=== PATIENT | female | born 1945 | race Caucasian/White ===

== ENCOUNTER 2018-09-09 10:03 | Inpatient (IN) | payer MEDICARE, OTHER ==
[~2018-09-09] VITALS: Ht 165.1 cm; Wt 63.8 kg
[~2018-09-09 10:03] MED LIST: ACTONEL; CYAN500L3 OR; PYRI50TA71 OR
[2018-09-09 10:55] LABS: Basophils # (auto) 0.1 uL; Basophils % (auto) 1.1 % (0.0-2.0); Eosinophils # (auto) 0.2 uL; Eosinophils % (auto) 2.8 % (0.0-7.0); Hematocrit 43.5 % (36.0-46.0); Hemoglobin 14.6 g/dL (12.2-16.2); Lymphocytes # (auto) 2.2 uL; Lymphocytes % (auto) 38.7 % (10.0-50.0); Mean Corpuscular Hemoglobin 29.8 pg (28.0-32.0); Mean Corpuscular Hgb Conc. 33.5 g/dL (32.0-36.0); Monocytes # (auto) 0.5 uL; Monocytes % (auto) 9.4 % (0.0-12.0); Neutrophils # (auto) 2.7 uL; Platelet Count (auto) 327 10^3/uL (140-450); Red Blood Cells 4.89 10^6/uL (4.0-5.20); Red Cell Distribution Width 13.6 % (11.8-14.3); White Blood Cell 5.7 10^3/uL (4.4-10.8)
[2018-09-09 11:08] LABS: INR 0.92 (0.9-1.15); Partial Thromboplastin Time 27.3 sec (23.78-33.04); Prothrombin Time 9.9 sec (9.27-12.13)
[2018-09-09 11:17] LABS: Chloride 110 mmol/L (98-107); Potassium 4.3 mmol/L (3.5-5.1); Sodium 140 mmol/L (136-145)
[2018-09-09 11:27] LABS: Alanine Aminotransferase 47 U/L (13-56); Albumin 3.6 g/dL (3.4-5.0); Alkaline Phosphatase 78 U/L (45-117); Anion Gap 3 (5-15); Aspartate Aminotransferase 21 U/L (15-37); BUN/Creatinine Ratio 18.5; Bilirubin, Total 0.6 mg/dL (0.2-1.0); Blood Urea Nitrogen 12 mg/dL (7-18); Calcium 8.5 mg/dL (8.5-10.1); Carbon Dioxide 27 mmol/L (21-32); GFR African American 116 mL/min; GFR Non-African American 96 mL/min; Glucose 86 mg/dL (74-106); Magnesium 2.6 mg/dL (1.6-2.6); Total Protein 7.7 g/dL (6.4-8.2)
[2018-09-09] MEDS ORDERED: SODIUM CHLORIDE 0.9% 1,000 ML IV ONE (14:49)
[2018-09-09] MEDS ORDERED: ONDANSETRON HCL 4 MG/2 ML VIAL IV ONE (15:00)
[2018-09-09] MEDS ORDERED: KETOROLAC TROMETH 30 MG/ML 1ML VIAL IV ONE (15:00)
[2018-09-09] MEDS ORDERED: ASPirin 81 mg TAB PO ONE (15:00)
[2018-09-09 17:06] LABS: Urine Bacteria FEW /hpf (None Seen); Urine Blood Negative /uL (Negative); Urine Specific Gravity 1.004 (1.001-1.035); Urine WBC 1 /hpf (0 - 5)
[2018-09-09] MEDS ORDERED: NITROGLYCERIN 0.4MG/HR TOPICAL PATCH TD ONE (17:30)
[2018-09-09] MEDS ORDERED: hydrALAZINE HCL 20 MG/ML VL IV PRN (17:30)
[2018-09-09] MEDS ORDERED: NITROGLYCERIN 0.4 MG SL TAB SL PRN (17:30)
[2018-09-09] MEDS ORDERED: MORPHINE SULF INJ 2 MG/ML SYRINGE 1ML IV PRN ×2 (17:30)
[2018-09-09] MEDS ORDERED: ALPRAZolam 0.25 MG TAB PO PRN (17:30)
[2018-09-09] MEDS ORDERED: HYDROcodone-ACET 5/325MG TAB PO PRN (17:30)
[2018-09-09] MEDS ORDERED: ONDANSETRON HCL 4 MG/2 ML VIAL IV PRN (17:30)
[2018-09-09 20:40] VITALS: BP 107/66
--- NOTE | 2018-09-09 20:40 | NUR ---
Telemetry admit from SY WILLRAMSES Parekh admitted to Telemetry unit. Patient oriented to Vernell Chu, primary RN, unit, room, bed, and unit policies regarding patient care and visiting hours. Patient now on continuous telemetry monitoring, tele box # [id number] and telemetry reading on arrival to unit is SR. Patient placed on bedside oxygen, weighed by bedscale and encouraged to call if they need something. All questions and concerns addressed, patient verbalized understanding. Note: patient alert and oriented x 4. On room air with even and unlabored respirations. patient denies CP at this time. no s/s of distress. patient ambulates with steady gait. instructed on POC and to call for assistance PRN. will continue to monitor.
[2018-09-09] MEDS: ACETAMINOPHEN 500 MG TAB PO PRN (21:29)
[2018-09-09] MEDS: ATORVASTATIN 20 MG TAB PO SCH (21:29)
[2018-09-09] MEDS: METOPROLOL TARTRATE 25 MG TAB PO SCH (21:30)
[2018-09-09 22:00] VITALS: BP 107/66
[2018-09-10] MEDS ORDERED: HYDR25TA4 PO (02:23)
[2018-09-10] MEDS ORDERED: CHOL20007 PO (02:23)
[2018-09-10] MEDS ORDERED: INFLUENZA QUAD 2018-2019 0.5 ML SYRG IM ONE (03:00)
[2018-09-10 05:01] VITALS: BP 104/62
--- NOTE | 2018-09-10 07:00 | NUR ---
Closing Note patient resting in bed with even and unlabored respirations. no s/s of distress. IV intact and patent. Endorsed care to day shift HOMA Rapp.
--- NOTE | 2018-09-10 07:30 | NUR ---
OPENING SHIFT NOTE ASSUMED CARE OF PATIENT FROM PLAN COORDINATOR RN KAMERON. PATIENT IS AWAKE AND ALERT X4. PATIENT HAS NO S/S OF DISTRESS/SOB OR PAIN. INSTRUCTED PATIENT ON POC, PATIENT VERBALIZED UNDERSTANDING. BED IS IN LOWEST POSITION WITH SIDE RAILS RAISED X2, BED WHEELS LOCKED, AND CALL LIGHT WITHIN REACH. WILL CONTINUE TO MONITOR.
[2018-09-10 07:39] VITALS: BP 132/64
[2018-09-10 07:42] LABS: Basophils # (auto) 0.1 uL; Basophils % (auto) 1.4 % (0.0-2.0); Eosinophils # (auto) 0.3 uL; Eosinophils % (auto) 4.6 % (0.0-7.0); Hematocrit 41.2 % (36.0-46.0); Hemoglobin 13.9 g/dL (12.2-16.2); Lymphocytes # (auto) 2.9 uL; Lymphocytes % (auto) 47.5 % (10.0-50.0); Mean Corpuscular Hemoglobin 30.1 pg (28.0-32.0); Mean Corpuscular Hgb Conc. 33.7 g/dL (32.0-36.0); Mean Corpuscular Volume 89.3 fL (80.0-100.0); Monocytes # (auto) 0.7 uL; Monocytes % (auto) 10.8 % (0.0-12.0); Neutrophils # (auto) 2.2 uL; Neutrophils % (auto) 35.7 % (37.0-80.0); Platelet Count (auto) 315 10^3/uL (140-450); Red Blood Cells 4.61 10^6/uL (4.0-5.20); Red Cell Distribution Width 13.5 % (11.8-14.3); White Blood Cell 6.1 10^3/uL (4.4-10.8)
[2018-09-10 07:55] LABS: Cholesterol 170 mg/dL (< 200); HDL Cholesterol 56 mg/dL (40-59); LDL Cholesterol 98 mg/dL (< 100); Triglycerides 100 mg/dL (< 150)
[2018-09-10 07:58] LABS: Potassium 4.4 mmol/L (3.5-5.1)
[2018-09-10 08:00] VITALS: BP 132/64
[2018-09-10 08:07] LABS: BUN/Creatinine Ratio 19.7; Calcium 8.4 mg/dL (8.5-10.1)
[2018-09-10] MEDS: cefTRIAXone 1GM/50ML D5W 50 ML IV SCH (09:33)
[2018-09-10] MEDS: PANTOPRAZOLE 40 MG/10 ML VIAL IV SCH (09:33)
[2018-09-10] MEDS: ASPirin-EC 81 mg tab PO SCH (09:34)
[2018-09-10] MEDS: METOPROLOL TARTRATE 25 MG TAB PO SCH (09:40)
[2018-09-10] MEDS: NITROGLYCERIN 0.4MG/HR TOPICAL PATCH TD SCH (09:40)
--- NOTE | 2018-09-10 10:45 | NUR ---
DR. PIERSON AT BEDSIDE UPDATED MD ON PATIENT'S STATUS, MD IS AWARE. DR. PIERSON WILL PUT IN ORDERS FOR STRESS TEST. INFORMED PATIENT SHE WILL NEED TO BE NPO UNTIL TEST IS DONE, PATIENT VERBALIZED UNDERSTANDING. WILL FOLLOW THROUGH WITH ORDERS.
[2018-09-10 12:00] VITALS: BP 112/69
[2018-09-10] MEDS: ACETAMINOPHEN 500 MG TAB PO PRN (14:10)
[2018-09-10 17:00] VITALS: BP 139/50
--- NOTE | 2018-09-10 19:20 | NUR ---
CLOSING SHIFT NOTE ENDORSED CARE TO INTERVENTIONAL TECH HOMA MELO. PATIENT HAS NO S/S OF DISTRESS/SOB OR PAIN AT THIS TIME.
--- NOTE | 2018-09-10 19:40 | NUR ---
Closing Note patient alert and oriented x 4. On room air with even and unlabored respirations. patient denies CP at this time. no s/s of distress. patient ambulates with steady gait. instructed on POC and to call for assistance PRN. will continue to monitor. Addendum: 09/11/18 at 0701 by Vernell Chu RN Opening Note
[2018-09-10] MEDS: ATORVASTATIN 20 MG TAB PO SCH (21:09)
[2018-09-10 22:26] VITALS: BP 101/62
[2018-09-11 05:29] VITALS: BP 85/57
--- NOTE | 2018-09-11 07:01 | NUR ---
Closing Note patient resting in bed with even and unlabored respirations. no s/s of distress. IV intact and patent. Endorsed care to day shift RN
--- NOTE | 2018-09-11 07:15 | NUR ---
OPENING SHIFT NOTE ASSUMED CARE OF PATIENT FROM RVDA MASTER CERTIFIED RV TECHNICIAN RN KAMERON. PATIENT IS AWAKE AND ALERT X4. PATIENT HAS NO S/S OF DISTRESS/SOB OR PAIN. INSTRUCTED PATIENT ON POC, PATIENT VERBALIZED UNDERSTANDING. BED IS IN LOWEST POSITION WITH SIDE RAILS RAISED X2, BED WHEELS LOCKED, AND CALL LIGHT WITHIN REACH. WILL CONTINUE TO MONITOR.
[2018-09-11 07:44] VITALS: BP 115/66
[2018-09-11] MEDS ORDERED: ADENOSINE 54 MG in GIVE UN-DILUTED 0 ML IV STA (08:14)
[2018-09-11 08:31] VITALS: BP 115/66
--- NOTE | 2018-09-11 09:00 | NUR ---
PATIENT TAKEN DOWN FOR STRESS TEST VIA WHEELCHAIR. PATIENT HAS NO S/S OF DISTRESS/SOB OR PAIN AT THIS TIME.
[2018-09-11 09:02] VITALS: BP 118/70
[2018-09-11] MEDS: NITROGLYCERIN 0.4MG/HR TOPICAL PATCH TD SCH (10:00)
--- NOTE | 2018-09-11 10:30 | NUR ---
PATIENT BROUGHT BACK UP FROM STRESS TEST. PATIENT HAS NO S/S OF DISTRESS/SOB OR PAIN AT THIS TIME. WILL CONTINUE TO MONITOR.
[2018-09-11] MEDS: PANTOPRAZOLE 40 MG/10 ML VIAL IV SCH (10:35)
[2018-09-11] MEDS: ASPirin-EC 81 mg tab PO SCH (10:35)
[2018-09-11] MEDS: cefTRIAXone 1GM/50ML D5W 50 ML IV SCH (10:35)
[2018-09-11 12:26] VITALS: BP 104/60
[2018-09-11 16:18] VITALS: BP 114/59
--- NOTE | 2018-09-11 18:20 | NUR ---
PAGED DR. PIERSON. AWAITING CALL BACK
--- NOTE | 2018-09-11 18:50 | NUR ---
MD PIERSON CALLED BACK. PER MD PATIENT IS OKAY TO BE DISCHARGED. WILL FOLLOW THROUGH WITH ORDERS
--- NOTE | 2018-09-11 19:25 | NUR ---
CLOSING SHIFT NOTE ENDORSED CARE TO FENCE INSTALLER RN KIKO. INFORMED HER PER DR. PIERSON, PATIENT IS CLEARED TO BE DISCHARGE. ENDORSED DISCHARGE TO RN. PATIENT HAS NO S/S OF DISTRESS/SOB OR PAIN AT THIS TIME.
== END 2018-09-11 20:20 | disposition home or self-care (01) | DRG 313 ==
LOC: ER 10:03 → TELE 17:22 → TELE-EAST 20:39
PROVIDERS: ADMIT Nurse Practitioner Acute Care; ATTEND Internal Medicine
PROC: 4A02XM4 Measurement of Cardiac Total Activity, External Approach (ICD-10-PCS; principal; 2018-09-11)
PROC: 3E033HZ Introduction of Radioactive Substance into Peripheral Vein, Percutaneous Approach (ICD-10-PCS; 2018-09-11)
DX: R07.9 Chest pain, unspecified (principal); N39.0 Urinary tract infection, site not specified; J43.9 Emphysema, unspecified; M81.0 Age-related osteoporosis without current pathological fracture; F41.9 Anxiety disorder, unspecified; F17.210 Nicotine dependence, cigarettes, uncomplicated; Z86.73 Personal history of transient ischemic attack (TIA), and cerebral infarction without residual deficits
CPT/HCPCS: 36415; 71046; 78452; 80048; 80053; 80061; 81001; 83735; 84443; 84484; 85025; 85379; 85610; 85730; 86141; 93005; 93017; 93306; C9113; G0378; J0153; J0696; J1885; J2405